=== PATIENT | female | born 1960 | race Caucasian/White ===

== ENCOUNTER 2020-05-17 20:01 | Emergency (ER) | payer BC, SELFPAY ==
[2020-05-17 21:12] VITALS: BP 132/68; PULSE 68; RESP 16; TEMP 36.5; O2SAT 98; BMI 25.2
[2020-05-17 23:24] VITALS: PULSE 80; RESP 18
--- NOTE | 2020-05-17 23:56 | ED.WOUNDLAC ---
HPI - Wound/Laceration General Chief Complaint: Wound/Laceration Stated Complaint: FINGER LACERATION Time Seen by Provider: 05/17/20 23:46 Source: patient Mode of arrival: ambulatory Limitations: no limitations History of Present Illness HPI narrative: patient comes to the emergency room complaining of a laceration to the dorsal aspect of the left index. 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 Patient has a superficial cut to the left index finger, bleeding control. Patient complaining of localized pain, denies being on blood thinners. Onset (ago): hour(s) Location: other ( Left index finger) Related Data Allergies Allergy/AdvReac Type Severity Reaction Status Date / Time No Known Allergies Allergy Verified 05/17/20 23:52 Review of Systems Review of Systems: Constitutional : No Weight loss, No Fever, No Chills, No Night Sweats, No Fatigue, No Malaise ENT/Mouth : No Hearing loss, No Ear Pain, No Nasal Congestion, No Sinus Pain, No Hoarseness, No sore throat, No Rhinorrhea, No Swallowing Difficulty Eyes: No Eye Pain, No Swelling, No Redness, No Foreign Body, No Discharge, No Vision Changes Cardiovascular : No Chest Pain, No SOB, No Dyspnea on Exertion, No Orthopnea, No Edema, No Palpitations Respiratory : No Cough, No Sputum, No Wheezing, No Smoke Exposure, No Dyspnea Gastrointestinal : No Nausea, No Vomiting, No Diarrhea, No Constipation, No abdominal Pain, No Hematochezia, No Melena Genitourinary : no irregular bleeding, No Dysuria, No Urinary Frequency, No Hematuria, No Urinary Incontinence, No Urgency, No Flank Pain, No Urinary Flow Changes, No Hesitancy Musculoskeletal : No joint pain, No Myalgias, No Joint Swelling Skin : laceration to left index finger Neuro : No Weakness, No Numbness, No Paresthesias, No Loss of Consciousness, No Dizziness, No Headache Psych : No Anxiety/Panic, No Depression, No SI/HI/AH/VH, No Social Issues, Heme/Lymph: No Bruising, No Bleeding,No Lymphadenopathy Endocrine : No Polyuria, No Polydipsia, No Temperature Intolerance PMFSH Past Medical History Medical History No known health problems Social History Social History Smoked in Last 30 Days: No Use of substances other than those prescribed or required for medical reasons: No Advance Directives: No Advance Directives Information Provided: No Physical Exam Vital Signs: Vital Signs: Vital Signs Temp Pulse Resp BP Pulse Ox 05/17/20 23:24 80 18 05/17/20 21:12 97.7 F 68 16 132/68 98 Body Mass Index 25.2 Appearance: Alert. Oriented X3. No acute distress. Eyes: Pupils equal, round and reactive to light. ENT: Pharynx normal. Neck: Normal inspection. Neck supple. No lymph nodes noted. No crepitus CVS: Normal heart rate and rhythm. Pulses normal. Normal S1 and S2 Respiratory: No respiratory distress. Breath sounds normal. No Wheezing. No rales Abdomen: Soft and nontender. No rigidity. No distention. good BS x4 Skin: Skin warm and dry. 1 cm superficial laceration to the dorsum of the left index, bleeding controlled, small abrasion to the dorsal aspect of the index finger as well. Extremities: No lower extremity edema. No lower extremity edema. No Lacerations. No Rash Neuro: Oriented X 3. No motor deficit. No sensory deficit. Moving all extermities. No slurred speech. Course Reevaluation(s) Reevaluation #1: Bleeding controlled, wound was thoroughly rinsed, Dermabond applied, Tdap given MDM - Wound/Laceration MDM Narrative Medical decision making narrative: Discharge Plan Discharge Clinical Impression: Laceration Patient Disposition: Home, Self-Care Instructions: Finger Laceration (ED) Additional Instructions: if you see any signs of infection such as redness, pus drainage, fever or any new concerns, please return to the hospital. Please follow-up with your primary care physician in 2-3 days for wound check
== END 2020-05-18 00:20 | disposition home or self-care (01) ==
PROVIDERS: Emergency Provider Emergency Medicine; PCP Internal Medicine
DX: S61.211A Laceration without foreign body of left index finger without damage to nail, initial encounter (principal); S60.411A Abrasion of left index finger, initial encounter; M79.645 Pain in left finger(s); W31.82XA Contact with other commercial machinery, initial encounter; Y93.9 Activity, unspecified; Y92.009 Unspecified place in unspecified non-institutional (private) residence as the place of occurrence of the external cause
CPT/HCPCS: 90471; 90715; 99284

== ENCOUNTER 2020-08-25 12:31 | Outpatient (REF) | payer SELFPAY ==
[2020-08-25 13:19] LABS: Cholesterol 246 mg/dL
== END 2020-08-25 12:32 | disposition home or self-care (01) ==
LOC: HO.LNC 12:31
PROVIDERS: Visit Provider Pathology Anatomic Pathology & Clinical Pathology
DX: Z13.89 Encounter for screening for other disorder (principal)
CPT/HCPCS: 36415; 82465

== ENCOUNTER 2020-10-17 14:22 | Outpatient (REF) | payer BC, SELFPAY | END 2020-10-17 14:23 | disposition home or self-care (01) | LOC: HO.LAB 14:22 | PROVIDERS: Visit Provider Internal Medicine | DX: Z20.822 Contact with and (suspected) exposure to COVID-19 (principal) | CPT/HCPCS: 36415; C9803; U0003; U0005 ==

== ENCOUNTER 2021-08-30 16:57 | Outpatient (REF) | payer BC, SELFPAY ==
[2021-08-30 17:15] LABS: MANUAL DIFF FLAG NO
[2021-08-30 17:20] LABS: Basophils Percent Auto 0.4 % (0-2); Eosinophils Absolute Auto 0.2 X10*3/uL (0.0-0.4); Eosinophils Percent Auto 2.8 % (0-4); Hematocrit 42.1 % (37.0-47.0); Hemoglobin 14.1 g/dl (12.0-16.0); Imm Gran Abs Auto 0.01 X10*3/uL (0.00-0.03); Imm Gran Pct Auto 0.1 % (0.0-0.4); Lymphocytes Absolute Auto 2.8 X10*3/uL (1.2-4.9); Mean Corpuscular HGB Conc 33.5 g/dl (31.0-35.0); Mean Corpuscular Hemoglobin 31.1 pg (27.0-33.0); Mean Corpuscular Volume 92.9 fL (80.0-98.0); Mean Platelet Volume 9.1 fL (9.4-12.3); Monocytes Absolute Auto 0.4 X10*3/uL (0.1-1.2); Monocytes Percent Auto 5.6 % (2-11); Neutrophils Absolute Auto 3.8 x10*3/uL (2.0-8.3); Neutrophils Percent Auto 52.1 % (45-73); Platelet Count 297 X10*3/uL (160-400); Red Blood Count 4.53 X10*6/uL (4.20-5.50); Red Cell Distribution Width 12.7 % (11.0-16.0); White Blood Count 7.3 X10*3/uL (4.8-10.8)
[2021-08-30 17:46] LABS: Alanine Aminotransferase 11 U/L (0-31); Albumin Level 4.2 g/dL (3.5-5.0); Alkaline Phosphatase 63 U/L (39-117); Amylase 128 U/L (28-100); Anion Gap 11 (12-20); Aspartate Amino Transferase 17 U/L (5-31); Bilirubin Direct 0.2 mg/dL (0.0-0.5); Bilirubin Total 0.4 mg/dL (0.0-1.0); Blood Urea Nitrogen 14 mg/dL (9-16); C Reactive Protein 0.25 mg/dL (< or = 0.50); Calcium 9.6 mg/dL (8.4-10.2); Carbon Dioxide 27 mmol/L (22-29); Chloride 104 mmol/L (96-108); Estimated Glomerular Filt Rate > 60; Glucose Random 93 mg/dL (60-115); Lipase 160 U/L (8-78); Potassium 4.2 mmol/L (3.3-5.1); Sodium 138 mmol/L (135-145)
[2021-08-30 18:06] LABS: T4 Thyroxine 7.4 ug/dL (4.5-12.0); Thyroid Stimulating Hormone 1.58 uIU/mL (0.32-4.0)
[2021-08-30 18:13] LABS: Erythrocyte Sedimentation Rate 14 MM/HR (0-20)
[2021-08-31 16:51] LABS: Immunoglobulin A 243 mg/dL (70-320); Immunoglobulin G 1053 mg/dL (600-1540)
[2021-09-01 07:01] LABS: Gliadin Deamidated IgA Ab <1.0 U/mL; Gliadin Deamidated IgG Ab <1.0 U/mL; Transglutaminase Ab IgG <1.0 U/mL
[2021-09-04 22:13] LABS: Endomysial IgA Antibody Negative (Negative)
== END 2021-08-30 16:58 | disposition home or self-care (01) ==
LOC: HO.LAB 16:57
PROVIDERS: PCP Internal Medicine; Visit Provider Internal Medicine
DX: R10.84 Generalized abdominal pain (principal); R19.4 Change in bowel habit; R10.13 Epigastric pain
CPT/HCPCS: 36415; 80053; 82150; 82248; 82784; 83690; 84436; 84443; 85025; 85652; 86140; 86231; 86258; 86364

== ENCOUNTER 2021-08-31 08:52 | Day surgery (SDC) | payer BC, SELFPAY ==
[2021-08-27 13:04] VITALS: BMI 29.2
[2021-08-28 16:53] VITALS: BMI 29.2
[2021-08-31 08:56] VITALS: BP 115/72; PULSE 87; RESP 17; TEMP 36.8; O2SAT 100
[2021-08-31] MEDS: Sodium Phosphate,Mono-Dibasic 133 ML ENEMA PR ×2 (09:24→09:40)
--- NOTE | 2021-08-31 10:15 | P.CONAN_ITS ---
HPI - Anesthesia Eval Consult details Narrative: 61 f for EGD and colonoscopy [facility] Past Medical History Medical History (Updated 08/27/21 @ 13:05 by Kathleen Peters RN) IBS (irritable bowel syndrome) Migraines Family History Family history of problems with anesthesia: No Surgical History Surgical History (Updated 08/27/21 @ 13:02 by Kathleen Peters RN) History of bilateral knee replacement History of toe surgery Hx of colonoscopy Hx of esophagogastroduodenoscopy Hx of repair of left rotator cuff Hx of thumb surgery History of Problems with Anesthesia: No Social History Social History (Updated 08/28/21 @ 16:55 by Kathleen Peters RN) Patient Tobacco Use Status: Never used Tobacco Are you DNR?: No Advance Directives: No Advance Directives Information Provided: Yes Advance Directives on File: No Meds Allergies Allergy/AdvReac Type Severity Reaction Status Date / Time hydromorphone [From AdvReac Nausea and Verified 08/28/21 17:00 Dilaudid] Vomiting Active Medications: Current Medications Sodium Biphosphate/Sodium Phosphate (Sodium Phosphate,[place]-Dibasic 133 Ml Enema) 133 ml [place] ONCE PRN PRN Reason: Poor Colonoscopy Prep Results Last Admin: 08/31/21 09:40 Dose: 133 ml Documented by: Home Medications Medication Instructions Recorded Confirmed Last Taken Type multivitamin 1 tab PO DAILY 08/27/21 08/27/21 Unknown History sumatriptan 5 1 spray 08/27/21 08/28/21 Unknown History mg/actuation INTRANASAL DAILY nasal PRN spray cholecalciferol 25 mcg PO DAILY 08/28/21 08/28/21 Unknown History (vitamin D3) 25 mcg (1,000 unit) capsule (Vitamin D3) magnesium 08/28/21 Unknown History Exam Exam Date and Time: August 31, 2021 1015 Height,Weight and Vital Signs: Height 5 ft 8 in Weight 87.09 kg Last Vital Signs Temp 98.2 F 08/31/21 08:56 Pulse 87 08/31/21 08:56 Resp 17 08/31/21 08:56 BP 115/72 08/31/21 08:56 Pulse Ox 100 08/31/21 08:56 Airway Mallampati Class: I Neck ROM: Full Loose/Missing/Broken Teeth: Yes Heart: rrr Lungs: bl breath sounds Assessment and Plan Assessment Anesthesia Assessment: Anesthesia Plan Discussed Final Anesthetic Review Family History of Problems with Anesthesia: No History of Problems with Anesthesia: No NPO: Yes ASA Class: II Final Preanesthetic Review: [place] Risks/Benef Reviewed Patient Risk: Intermediate Procedure Risk: Intermediate Anesthetic Plan Anesthetic Plan: MAC: Disposition: Standard PACU
[2021-08-31 11:26] VITALS: BP 105/41; PULSE 83; RESP 17; TEMP 36.7; O2SAT 98
--- NOTE | 2021-08-31 11:27 | P.BOP_ITS ---
Brief Operative Note Date of Service: 08/31/21 Pre-op diagnosis: Abdominal pain, Change in Bowel movements Post-op diagnosis: other (Hiatal hernia, Colon polyps) Procedure: EGD with biopsies, Colonoscopy to the cecum with cold snare polypectomy at 30cm, biopsies, and bx/removal of cecal polyp. Surgeon: Amanuel Mendoza Anesthesia: MAC Was an Turbine Room Attendant used for this Procedure?: No Estimated blood loss (mL): 3.0 Pathology: other (A. Descending duodenum B. Gastric antrum C. EG Junction at 35cm D. Cecal polyp E. Ascending colon F. Descending colon G. Polyp at 30cm) Condition: stable Disposition: PACU
[2021-08-31 11:41] VITALS: BP 118/69; PULSE 77; RESP 18; TEMP 36.7; O2SAT 100
--- NOTE | 2021-08-31 15:27 | OP_ITS ---
SURGEON: Amanuel Mendoza MD INDICATIONS: The patient presents for evaluation of abdominal discomfort and irregular bowel movements. Full consent was obtained from her for this, including risks of bleeding and perforation. PREOPERATIVE DIAGNOSIS: POSTOPERATIVE DIAGNOSIS: PROCEDURE PERFORMED: Esophagogastroduodenoscopy with biopsies, and colonoscopy to the cecum with cold snare polypectomy, biopsy removal of polyp, and biopsies. ESTIMATED BLOOD LOSS: COMPLICATIONS: ANESTHESIA: Monitored anesthesia care. ASSISTANTS: SPECIMENS: PREOPERATIVE DIAGNOSES: Abdominal discomfort and change in bowel habits. POSTOPERATIVE DIAGNOSES: Abdominal discomfort and change in bowel habits, hiatal hernia, rule out celiac disease, colon polyps, rule out microscopic colitis, diverticulosis, internal and external hemorrhoids. DESCRIPTION OF PROCEDURE: The patient was placed in the left lateral decubitus position. The Olympus video gastroscope was passed in the posterior oropharynx and upper esophagus under direct vision. The scope was passed slowly into the distal esophagus. The gastroesophageal junction appeared at 35 cm. There was some slight irregularity, but no evidence of any esophagitis nor any definitive evidence of Angel's mucosa. There was a small to moderate-sized hiatal hernia. The hiatal hernia mucosa appeared normal. The scope was advanced to pylorus and duodenum was cannulated in the descending portion. The duodenum including the bulb was carefully inspected and appeared normal without mass or ulceration. Biopsies were obtained from the 2nd and 3rd portions of duodenum. The scope was withdrawn back in the stomach. The gastric antrum and body appeared normal with good peristalsis. The scope was retroflexed visualizing the proximal stomach carefully, which appeared normal, without any sign of mass or ulceration. The scope was straightened. Biopsies were obtained from the gastric antrum. Scope was withdrawn back to the esophagus. Biopsies were obtained at the EG junction at 35 cm. Proximal to this, the esophageal mucosa appeared normal. The scope was withdrawn from the patient. She was turned around for the colonoscopy. The digital rectal exam revealed no abnormalities. The Olympus video pediatric colonoscope was entered into the rectum and advanced easily to the cecum. Once in the cecum, I did identify normal-appearing cecal pouch with appendiceal orifice, other than a 3 mm polyp, which was biopsied and completely removed with cold biopsy forceps. The remainder of the cecum appeared normal. There was transillumination of light deep in the right lower quadrant. The scope was slowly withdrawn assessing all mucosal surfaces carefully. Preparation was excellent. I did not visualize any sign of colitis nor angiodysplasia. Random biopsies were obtained in the ascending and descending colon. There was a mild amount of sigmoid diverticulosis. At 30 cm, was an approximately 6 to 8 mm polyp, which was snared and removed with the cold snare polypectomy. There did not appear to be any residual polyp nor any significant bleeding post polypectomy. I did not visualize any sign of other polyps. In the rectum, scope was retroflexed visualizing internal hemorrhoids, but no other pathology. The rectal mucosa appeared normal. The scope was straightened and withdrawn from the patient. She tolerated the procedure well and was returned to recovery area in stable condition. IMPRESSION: 1. Hiatal hernia. 2. Rule out celiac disease. 3. Colon polyps. 4. Rule out microscopic colitis. 5. Diverticulosis. 6. Internal and external hemorrhoids. PLAN: The results of biopsies will be checked. If the colon polyps are tubular adenoma, I would recommend a followup colonoscopy in 5 years. She was advised not to use any aspirin and NSAIDs for 1 week. She is scheduled for an abdominal ultrasound and was advised to see me again in several months for a followup visit. Recent laboratories were all normal, although she did have a slight elevation of her pancreatic enzymes. Depending upon the results of her ultrasound and her clinical course, she may need further evaluation with a CT scan of the pancreas for further evaluation. MD WILEY Rodas/JULES / [id number]
== END 2021-08-31 12:00 | disposition home or self-care (01) ==
PROVIDERS: PCP Internal Medicine; Visit Provider Internal Medicine
PROC: (CPT 45385; principal; 2021-08-31 09:50)
DX: R19.4 Change in bowel habit (principal); D12.0 Benign neoplasm of cecum; D12.5 Benign neoplasm of sigmoid colon; K57.30 Diverticulosis of large intestine without perforation or abscess without bleeding; K64.8 Other hemorrhoids; K64.4 Residual hemorrhoidal skin tags; K58.9 Irritable bowel syndrome, unspecified; R10.13 Epigastric pain; R10.84 Generalized abdominal pain; K44.9 Diaphragmatic hernia without obstruction or gangrene; G43.909 Migraine, unspecified, not intractable, without status migrainosus; Z79.899 Other long term (current) drug therapy; Z88.8 Allergy status to other drugs, medicaments and biological substances; Z96.653 Presence of artificial knee joint, bilateral
CPT/HCPCS: 45385; 45380; 43239; 88305; 88342

== ENCOUNTER 2021-10-11 08:54 | Outpatient (REF) | payer BC, SELFPAY ==
--- NOTE | ~2021-10-11 | US_ITS ---
EXAMINATION: US ABDOMEN COMPLETE CLINICAL INFORMATION: Abdominal pain. COMPARISON: None TECHNIQUE: Real-time imaging of the abdominal viscera. FINDINGS: PANCREAS: Normal. ABDOMINAL AORTA: The proximal, mid, and distal segments are normal in caliber. INFERIOR VENA CAVA: Visualized portions are normal. LIVER: Normal. The liver is normal in size. The liver contour is normal. Parenchymal echogenicity is normal. No focal hepatic lesion. There is no intrahepatic biliary duct dilatation seen. GALLBLADDER: Normal. The gallbladder is physiologically distended without evidence of stones, sludge, polyps, wall thickening or pericholecystic fluid. COMMON BILE DUCT: Normal in caliber measuring 0.5 cm in diameter. RIGHT KIDNEY: Normal. No hydronephrosis. No renal calculi or focal parenchymal lesions. The kidney measures 10.8 cm in maximum dimension. LEFT KIDNEY: Normal. No hydronephrosis. No renal calculi or focal parenchymal lesions. The kidney measures 10.2 cm in maximum dimension. SPLEEN: Normal. The spleen measures 10.2 cm in maximum dimension. FREE FLUID: None. US/US abdomen complete IMPRESSION: Essentially unremarkable appearance of the abdominal structures.
== END 2021-10-11 08:55 | disposition home or self-care (01) ==
LOC: HO.US 08:54
PROVIDERS: PCP Internal Medicine; Visit Provider Internal Medicine
DX: R10.84 Generalized abdominal pain (principal); R10.13 Epigastric pain
CPT/HCPCS: 76700

== ENCOUNTER 2021-11-28 17:16 | Outpatient (REF) | payer BC, SELFPAY ==
[2021-11-28 18:11] LABS: Amylase 69 U/L (28-100); Lipase 14 U/L (8-78)
== END 2021-11-28 17:17 | disposition home or self-care (01) ==
LOC: HO.LAB 17:16
PROVIDERS: PCP Internal Medicine; Visit Provider Internal Medicine
DX: R10.84 Generalized abdominal pain (principal)
CPT/HCPCS: 36415; 82150; 83690

== ENCOUNTER 2022-02-12 16:41 | Emergency (ER) | payer BC, SELFPAY | END 2022-02-12 18:05 | disposition left against medical advice (07) | PROVIDERS: Emergency Provider Emergency Medicine; PCP Internal Medicine | DX: R51.9 Headache, unspecified (principal) ==

== ENCOUNTER → 2025-02-06 03:37 | Outpatient (BNV) | payer BC, SELFPAY | PROVIDERS: PCP Internal Medicine; Visit Provider Specialist | DX: K59.00 Constipation, unspecified (principal) | CPT/HCPCS: 74018 ==

== ENCOUNTER 2025-02-06 04:16 | Emergency (ER) | payer BC, SELFPAY ==
--- NOTE | ~2025-02-06 | XR_ITS ---
CLINICAL HISTORY: constipation 1 view abdomen Comparison: None provided Findings: No pneumoperitoneum or pneumatosis. No abnormal calcifications. No acute fractures. There is an IUD in the mid pelvis. IMPRESSION: Normal bowel gas pattern This document has been electronically signed by: Pawel Parish MD on 02/06/2025 04:57:02
[2025-02-06 04:18] VITALS: BP 125/77; PULSE 75; RESP 14; TEMP 36.8; O2SAT 100; BMI 25.8
[2025-02-06 04:47] LABS: MANUAL DIFF FLAG NO
[2025-02-06 04:50] LABS: Hematocrit 31.7 % (37.0-47.0); Hemoglobin 10.9 g/dl (12.0-16.0); Imm Gran Abs Auto 0.07 X10*3/uL (0.00-0.03); Imm Gran Pct Auto 0.9 % (0.0-0.4); Lymphocytes Absolute Auto 1.5 X10*3/uL (1.2-4.9); Mean Corpuscular HGB Conc 34.4 g/dl (31.0-35.0); Mean Corpuscular Hemoglobin 31.6 pg (27.0-33.0); Mean Corpuscular Volume 91.9 fL (80.0-98.0); NRBC Abs Auto 0.000 X10*3/uL (0.0-0.012); NRBC Pct Auto 0.0 /100WBC (0.0-0.2); Platelet Count 369 X10*3/uL (160-400); Red Blood Count 3.45 X10*6/uL (4.20-5.50); White Blood Count 7.4 X10*3/uL (4.8-10.8)
[2025-02-06 05:07] LABS: Alanine Aminotransferase 23 U/L (0-31); Albumin Level 3.8 g/dL (3.5-5.0); Alkaline Phosphatase 56 U/L (39-117); Anion Gap 13 (12-20); Aspartate Amino Transferase 30 U/L (5-31); Blood Urea Nitrogen 11 mg/dL (9-16); Calcium 8.6 mg/dL (8.4-10.2); Carbon Dioxide 23 mmol/L (22-29); Chloride 104 mmol/L (96-108); Creatinine Clr Calc Pharmacy 88.9; Estimated Glomerular Filt Rate > 60; Lipase 33 U/L (8-78); Potassium 4.3 mmol/L (3.3-5.1); Sodium 136 mmol/L (135-145); Total Protein 6.1 g/dL (6.5-8.0)
--- NOTE | 2025-02-06 05:37 | ED_ITS ---
HPI - General Adult General Chief complaint: General Medical Stated complaint: constipated Time Seen by Provider: 02/06/25 05:37 History of Present Illness ED Provider: Yves TOTH narrative: The patient is a 64-year-old woman who recently had scheduled right hip replacement surgery. SHe had surgery at [facility] on January 26. She was discharged on oxycodone and trazodone. She says that after the surgery she had bowel movements for a couple of days but at this point she has not had a bowel movement for about a week. She says that she has had some occasional episodes of vomiting in the last few days. She ate a normal dinner yesterday evening. She ate chili. However this morning she had an episode of vomiting. It was after the episode of vomiting that she came to the emergency department. No fever, sweats, chills. Currently she has no abdominal pain and she has no nausea. Related Data Home Medications ?Medication ?Instructions ?Recorded ?Confirmed multivitamin 1 tab PO DAILY 08/27/2108/05 sumatriptan 5 mg/actuation nasal 1 spray intranasal DA NARGIS PRN 08/27/21 08/28/21 spray Headache cholecalciferol (vitamin D3) 25 25 mcg PO DAILY 08/28/21 mcg (1,000 unit) capsule (Vitamin D3) magnesium 08/28/21 Allergies Allergy/AdvReac Type Severity Reaction Status Date / Time hydromorphone (From Dilaudid) AdvReac Nausea and Verified 02/06/25 04:22 Vomiting Review of Systems 2 Review of Systems: Yes all other systems are reviewed and are negative [facility] Past Medical History Medical History (Updated 02/06/25 @ 08:28 by Miller Marinelli MD) Migraines IBS (irritable bowel syndrome) Surgical History (Updated 08/27/21 @ 13:02 by Kathleen Peters RN) History of toe surgery Hx of thumb surgery Hx of repair of left rotator cuff Hx of esophagogastroduodenoscopy Hx of colonoscopy History of bilateral knee replacement Social History Social History (Updated 08/28/21 @ 16:55 by Kathleen Peters RN) Patient Tobacco Use Status: Never used Tobacco Advance Directives: Yes Advance Directives Information Provided: Yes Advance Directives on File: No Do you have a plan to hurt others: No Plan Physical Exam ED Vital Signs: Vital Signs - 24 hr 02/06/25 04:18 02/06/25 05:55 02/06/25 08:41 Temperature 98.3 F 97.8 F 97.8 F Pulse Rate 75 70 78 Respiratory Rate 14 18 18 Blood Pressure 125/77 93/52 L 113/58 L Pulse Oximetry 100 100 100 Oxygen Delivery Method Room Air Room Air Room Air BMI result Body Mass Index 25.8 Const Other: The patient is awake, alert, pleasant, cooperative. She is well-groomed. She does not seem in distress. HENMT Other: Face is symmetrical, mucous membranes moist. Eyes Other: Pupils are round equal, conjunctivae are clear, extraocular movements intact Neck Neck: Yes normal visual inspection, Yes full ROM and Yes no JVD Resp Effort & Inspection: normal respiratory effort Auscultation: clear to auscultation bilaterally Cardio Rate: regular rate Rhythm: regular rhythm and abnormal rhythm GI Other: The abdomen is soft and nontender. Rectal exam revealed normal rectal tone. There was no stool in the rectal vault. No impaction Skin Other: Skin is dry and unremarkable Neuro Other: The patient is awake and alert with a normal mental status. Cranial nerves 2-12 are intact. She moves her extremities normally and appropriately. She has a stiff gait consistent with a recent hip replacement surgery. Extrem Other: The patient has a lot of bruising in the region of the right lateral proximal thigh where she has a surgical scar. Medications Administered Discontinued Medications Generic Name Dose Route Start Last Admin Trade Name Freq PRN Reason Stop Dose Admin Lactulose 200 gm 02/06/25 06:34 02/06/25 07:42 Lactulose 320 Gm/480 Ml Solution NV 02/06/25 06:35 200 gm ONCE ONE Administration Magnesium Citrate 300 ml 02/06/25 08:25 02/06/25 08:35 Magnesium Citrate 300 Ml Solution PO 02/06/25 08:26 300 ml ONCE ONE Administration Sodium Biphosphate/Sodium Phosphate 133 ml 02/06/25 05:47 02/06/25 05:54 Sodium Phosphate,[place]-Dibasic 133 Ml Enema NV 02/06/25 05:48 133 ml ONCE ONE Administration Medical Decision Making Medical Decision Making MDM Narrative: The patient is a 64-year-old female who is approximately 10 days status post total right hip replacement surgery. She has not had a bowel movement for the last 7-8 days. She used oxycodone only for 3 days after the surgery. She says that she has given herself an enema at home and she has taken a dose of lactulose. This morning she had an episode of vomiting after eating dinner yesterday evening. She is not currently nauseated or in pain. Her abdomen is benign. There was no fecal impaction. The patient's clinical appearance is benign. She does not appear septic or toxic in any way. She was given a Fleet enema which had no results. She was also given a lactulose enema which has no results. Her KUB does not show a remarkably large amount of stool. She was offered the option of a CT scan with oral contrast to be both possibly diagnostic and therapeutic. Alternatively she was given the option of trying a bottle of magnesium citrate in drinking it at home and seeing how she does. She has a CBC that shows a normal white count and differential. Her chemistries are all normal. Her vital signs are normal. She is not febrile. She has a completely benign abdomen to palpation. She would prefer to go home and see of magnesium citrate helps. She should return if worse. Lab Data 02/06/25 04:44 02/06/25 04:44 Labs: Lab Results 02/06/25 Range/Units 04:44 WBC 7.4 (4.8-10.8) X10*3/uL RBC 3.45 L D (4.20-5.50) X10*6/uL Hgb 10.9 L D (12.0-16.0) g/dl Hct 31.7 L D (37.0-47.0) % MCV 91.9 (80.0-98.0) fL MCH 31.6 (27.0-33.0) pg MCHC 34.4 (31.0-35.0) g/dl RDW 14.4 (11.0-16.0) % Plt Count 369 (160-400) X10*3/uL MPV 8.6 L (9.4-12.3) fL Immature Gran % (Auto) 0.9 H (0.0-0.4) % Neut % (Auto) 69.5 (45-73) % Lymph % (Auto) 20.8 (20-40) % [place] % (Auto) 5.7 (2-11) % Eos % (Auto) 2.7 (0-4) % Baso % (Auto) 0.4 (0-2) % Lymph # (Auto) 1.5 (1.2-4.9) X10*3/uL [place] # (Auto) 0.4 (0.1-1.2) X10*3/uL Eos # (Auto) 0.2 (0.0-0.4) X10*3/uL Baso # (Auto) 0.0 (0.0-0.2) X10*3/uL Abs Immat Gran (auto) 0.07 H (0.00-0.03) X10*3/uL Absolute Neuts (auto) 5.1 (2.0-8.3) x10*3/uL Absolute Nucleated RBC 0.000 (0.0-0.012) X10*3/uL Nucleated RBC % (auto) 0.0 (0.0-0.2) /100WBC Sodium 136 (135-145) mmol/L Potassium 4.3 (3.3-5.1) mmol/L Chloride 104 (96-108) mmol/L Carbon Dioxide 23 (22-29) mmol/L Anion Gap 13 (12-20) BUN 11 (9-16) mg/dL Creatinine 0.65 (0.5-1.4) mg/dL Estim Creat Clear Calc 88.9 Estimated GFR > 60 Random Glucose 103 (60-115) mg/dL Calcium 8.6 D (8.4-10.2) mg/dL Total Bilirubin 0.5 (0.0-1.0) mg/dL AST 30 (5-31) U/L ALT 23 (0-31) U/L Alkaline Phosphatase 56 (39-117) U/L Total Protein 6.1 L (6.5-8.0) g/dL Albumin 3.8 (3.5-5.0) g/dL Lipase 33 (8-78) U/L Discharge Plan Discharge Clinical Impression: Constipation Patient Disposition: Home, Self-Care Instructions: Constipation (ED) Additional Instructions: Your blood test results are quite reassuring. I still think there is a reasonably good likelihood you have some degree of constipation. However since the enemas have not helped I think it would be reasonable for you to take a bottle of magnesium citrate by mouth to see if this is more effective than the enemas. Therefore please drink the provided bottle of magnesium citrate over the next couple of hours at home today. My hope is that this will have a significant purgative effect. Please stay in touch with your regular doctor's office for additional advice as needed. If you feel significantly worse please return to the emergency room. Prescriptions: No Action multivitamin Tablet 1 tab PO DAILY sumatriptan 5 mg/actuation spray,non-aerosol 1 spray intranasal DAILY PRN (Reason: Headache) cholecalciferol (vitamin D3) [Vitamin D3] 25 mcg (1,000 unit) Capsule 25 mcg PO DAILY magnesium Referrals: Germán Posey MD [Primary Care Provider, Internal Medicine] Interventions: ED Discharge Assessment Last Done: 02/06/25 08:41 Discharge Date/Time: 02/06/25 08:45 Print Language: Greek
[2025-02-06 05:55] VITALS: BP 93/52; PULSE 70; RESP 18; TEMP 36.6; O2SAT 100
--- NOTE | 2025-02-06 06:25 | PC.NURSE ---
pt reporting she was able to hold the enema for about 5 minutes, then had to use the bathroom, only water came out, no stool at this time. MD michael
--- NOTE | 2025-02-06 06:44 | PC.NURSE ---
awaiting lactulose from pharmacy.
[2025-02-06] MEDS: Lactulose 320 GM/480 ML SOLUTION 200 GM PR (07:42)
--- NOTE | 2025-02-06 08:18 | PC.NURSE ---
Pt reports that she was up to BR x 2 after lactulose enema w/o any BM. Just clear liquid. MD aware. Pt had tolerated instilling of aprox 700ml very well during administration.
[2025-02-06 08:41] VITALS: BP 113/58; PULSE 78; RESP 18; TEMP 36.6; O2SAT 100
== END 2025-02-06 08:45 | disposition home or self-care (01) ==
PROVIDERS: Emergency Provider Emergency Medicine; PCP Internal Medicine
DX: K59.00 Constipation, unspecified (principal); R11.10 Vomiting, unspecified; Z79.899 Other long term (current) drug therapy
CPT/HCPCS: 36415; 74018; 80053; 83690; 85025; 99283; 99284

== ENCOUNTER 2025-02-07 05:28 | Emergency (ER) | payer BC, SELFPAY ==
--- NOTE | ~2025-02-07 | CT_ITS ---
EXAMINATION: CT ABDOMEN AND PELVIS WITH CONTRAST CLINICAL INFORMATION: Nausea and vomiting. COMPARISON: None available. TECHNIQUE: Multidetector volumetric images were obtained from the superior aspect of the liver through the pubic symphysis following administration 85 mL of Omnipaque 350 intravenous contrast. Sagittal and coronal reformatted images were obtained on the technologist's workstation. Oral contrast: Yes This CT examination was performed using dose optimization techniques as appropriate, variously including the following: *Automated exposure control *Adjustment of mA and/or kV according to patient size (this includes techniques or standardized protocols for targeted exams where dose is matched to indication/reason for exam; i.e. extremities or head) *Use of iterative reconstruction technique FINDINGS: LUNG BASES: The visualized lung bases are unremarkable. LIVER, GALLBLADDER, AND BILIARY TREE: The liver is normal in size, shape, and attenuation. No focal hepatic lesion or biliary ductal dilatation is present. The gallbladder is unremarkable with no evidence of radiopaque gallstones, gallbladder wall thickening, or obvious pericholecystic inflammatory changes. PANCREAS: Unremarkable. SPLEEN: Unremarkable. ADRENAL GLANDS: Unremarkable. KIDNEYS AND URETERS: The kidneys are normal in size, shape, and attenuation. No hydronephrosis, hydroureter, or calculi seen. No perinephric stranding. BLADDER: Partially obscured by streak artifact from right hip prosthesis. Otherwise normal. GASTROINTESTINAL TRACT: Normal appendix visualized. Minimal thickening of the terminal ileum, equivocal for a mild enteritis. The small bowel is otherwise normal in caliber and course. The colon is normal in caliber and course. There is mild to moderate diverticulosis of the sigmoid. No wall thickening or inflammation identified. The rectum is normal. PERITONEUM: There is trace ascites in the pelvic recesses. There is no free air. ABDOMINAL WALL: No significant hernia is appreciated. LYMPH NODES: Normal. VASCULAR: Mild atheromatous calcification of the aorta and iliac arteries. There is no aortic aneurysm. PELVIC VISCERA: An IUD device lies within the central uterus. There are no adnexal masses. OSSEOUS STRUCTURES: No suspicious lytic or blastic bone lesions. Hemangiomas are present in T12, L2 and L4. There is a mild levoconvex lumbar scoliosis with moderate degenerative spondylosis. Total right hip arthroplasty in place with associated streak artifact. Moderate arthritis in the left hip joint with chondrocalcinosis present. Vague calcifications overlying the greater trochanters bilaterally, in keeping with calcific tendinopathy of the gluteus medius tendons. Similar calcifications noted in the hamstrings attachments. No suspicious lytic or blastic bone lesion. CT/CT abdomen pelvis w IV con IMPRESSION: 1. Minimal thickening of the terminal ileum, raising the possibility of a mild enteritis. There is no bowel obstruction. 2. There is mild wall thickening of the left hemicolon, in keeping with mild segmental infectious or inflammatory colitis in the appropriate clinical setting. Correlate for signs and symptoms of colitis. 3. No additional acute findings in the abdomen or pelvis. 4. There are numerous ancillary findings as discussed in the body of the report. Electronically signed by: Mitch Laboy MD 02/07/2025 12:21 PM EDT
[2025-02-07 05:35] VITALS: BP 115/64; PULSE 73; RESP 16; TEMP 36.3; O2SAT 97; BMI 25.8
--- NOTE | 2025-02-07 07:49 | PC.NURSE ---
Report taken from previous rn, pt is resting comfortably sitting at edge of bed. pt was also witnessed ambulating with brisk steady gait in room. call love is within reach pt does not appear to be a fall risk.
--- NOTE | 2025-02-07 07:58 | ED_ITS ---
HPI - Abdominal Pain General Chief Complaint: Abdominal Pain Stated Complaint: severe constipation after hip surgery Time Seen by Provider: 02/07/25 07:57 Source: patient and RN notes reviewed Mode of arrival: ambulatory Limitations: no limitations History of Present Illness ED Provider: Jacey Herrera PA-C HPI narrative: This is a 64-year-old female, with a recent total hip replacement performed at [facility] on January 26, 2025, and IBS, here with concerns of nausea, vomiting, and constipation. Patient presented to the emergency room yesterday for similar symptoms. Patient reports that she had a bowel movement on January 25, the day before her surgery, states that several days after her surgery she had very hard stool. She states that she only was on oxycodone for 2-3 doses, which he has since discontinued. She has been taking docusate, MiraLax, enemas, lactulose, Mag citrate, however continues to have only water stool. She does report that she has had decreased flatulence, unsure she has passed gas over the last 24 hours. She denies any fevers. She does endorse headache, and nausea. No abdominal pain fevers, chills, chest pain, shortness for breath, or urinary symptoms. No other complaints or concerns at this time. Pertinent past history: constipation Onset (ago): day(s) Location: none Radiation: none Exacerbating factors: nothing Relieving factors: nothing Associated symptoms: nausea and constipation Related Data Home Medications ?Medication ?Instructions ?Recorded ?Confirmed multivitamin 1 tab PO DAILY 08/27/2108/05 sumatriptan 5 mg/actuation nasal 1 spray intranasal DA NARGIS PRN 08/27/21 08/28/21 spray Headache cholecalciferol (vitamin D3) 25 25 mcg PO DAILY 08/28/21 mcg (1,000 unit) capsule (Vitamin D3) magnesium 08/28/21 Allergies Allergy/AdvReac Type Severity Reaction Status Date / Time hydromorphone (From Dilaudid) AdvReac Nausea and Verified 02/07/25 05:38 Vomiting Review of Systems Review of Systems Yes all other systems are reviewed and are negative Constitutional: Reports as per HPI [facility] Past Medical History Attestation statement: The following information was validated with the patient. Medical History Migraines IBS (irritable bowel syndrome) Surgical History History of toe surgery Hx of thumb surgery Hx of repair of left rotator cuff Hx of esophagogastroduodenoscopy Hx of colonoscopy History of bilateral knee replacement Social History Social History Patient Tobacco Use Status: Never used Tobacco Smoked in Last 30 Days: No Use of substances other than those prescribed or required for medical reasons: No Advance Directives: No Advance Directives Information Provided: No Physical Exam ED Vital Signs: Vital Signs - 24 hr 02/07/25 05:35 Temperature 97.4 F Pulse Rate 73 Respiratory Rate 16 Blood Pressure 115/64 Pulse Oximetry 97 Oxygen Delivery Method Room Air BMI result Body Mass Index 25.8 Const General: cooperative, comfortable and no acute distress Orientation/consciousness: patient oriented x3 Limitations: no limitations HENMT Head: Yes normal to inspection, Yes normocephalic and Yes atraumatic Ears: hearing grossly normal bilaterally General nose exam: Normal external nose present Face and sinus: Yes normal facial exam Mouth: Normal oral and palatal mucosa present, oropharynx normal and moist mucous membranes Throat: Yes posterior oropharynx normal Eyes General: appearance normal, both eyes and all related structures Eyelids: Yes eyelids normal Conjunctivae: conjunctivae normal Sclerae: sclerae normal Pupils: Equal, round and reactive pupils present EOM: EOMs intact bilaterally Neck Neck: Yes normal visual inspection, Yes full ROM and Yes no lymphadenopathy Lymphatic: no lymphadenopathy noted Chest Chest palpation & inspection: normal inspection of the chest Resp Effort & Inspection: normal respiratory effort and able to speak in complete sentences Auscultation: clear to auscultation bilaterally, no crackles, no rales, no rhonchi and no wheezes Cardio Rate: regular rate Rhythm: regular rhythm Heart sounds: S1 normal heart sound present and S2 normal heart sound present GI Other: Abdomen is soft, nontender, nondistended, hyperactive bowel sounds present in all 4 quadrants. Inspection: Yes normal to inspection Skin General skin exam: no rashes or lesions noted Trauma: no lacerations or abrasions Wounds: no wounds Neuro General: patient oriented x3 and moves all extremities Cranial nerves: Yes Equal, round and reactive pupils present Extrem General: Yes normal to inspection Right upper extremity: normal to inspection Left upper extremity: normal to inspection Right lower extremity: normal to inspection Left lower extremity: normal to inspection Medical Decision Making Medical Decision Making [facility] Narrative: This is a 64-year-old female, with a history of IBS, and recent hip replacement, who presents emergency department with concerns of constipation. Has not moved her bowels fully since before the surgery which was performed on January 26. She has no abdominal pain, reporting decreased flatulence. No fevers or chills. Will obtain labs, and CT abdomen and pelvis with IV contrast and oral contrast. Differential diagnoses include constipation, SBO, gastritis, diverticulitis. Vital signs on arrival within normal limits, she is afebrile, nontoxic- appearing, not tachycardic. We will continue to monitor pending overall workup. Course: Labs returned, no leukocytosis, H&H revealing a normocytic anemia with 11.9/36.1, chemistry revealing no significant electrolyte derangement, urine with trace blood, otherwise unremarkable. 1424 - Your CT scan reveals minimal thickening of the terminal ileum, raising possibility mild enteritis, as well as mild wall thickening of the left hemicolon in keeping with mild segmental infectious or inflammatory colitis. I discussed this with GI specialist, Dr. Mendoza. Dr. Mendoza states that she must think she is constipated, and watery stools are likely from all of the bowel meds that she is currently on. CT scan is not consistent with constipation. Recommending checking for C diff, GI panel, as well as fecal calprotectin level. Recommending holding off on any antibiotic or steroid treatment, until lay off all of the bowel medications and start using to Metamucil fiber pills once or twice a day with a lot of water and eat normally. Patient was given strict return precautions, she understands and agrees with plan. Patient stable for discharge. Differential Diagnosis Differential Diagnoses: The differential diagnosis associated with the presentation includes See above Admission/Observation Consideration of admission/observation: Escalation of care including admission/observation considered Lab Data [facility] Lab Attestation statement: I reviewed the patient's lab results. See MDM and course 02/07/25 08:30 02/07/25 08:29 Labs: Lab Results 02/07/25 02/07/25 Range/Units 08:29 08:30 WBC 8.2 (4.8-10.8) X10*3/uL RBC 3.84 L (4.20-5.50) X10*6/uL Hgb 11.9 L (12.0-16.0) g/dl Hct 36.1 L (37.0-47.0) % MCV 94.0 (80.0-98.0) fL MCH 31.0 (27.0-33.0) pg MCHC 33.0 (31.0-35.0) g/dl RDW 14.9 (11.0-16.0) % Plt Count 442 H (160-400) X10*3/uL MPV 8.5 L (9.4-12.3) fL Immature Gran % (Auto) 0.7 H (0.0-0.4) % Neut % (Auto) 58.4 (45-73) % Lymph % (Auto) 30.5 (20-40) % Perkins % (Auto) 6.6 (2-11) % Eos % (Auto) 3.3 (0-4) % Baso % (Auto) 0.5 (0-2) % Lymph # (Auto) 2.5 (1.2-4.9) X10*3/uL Perkins # (Auto) 0.5 (0.1-1.2) X10*3/uL Eos # (Auto) 0.3 (0.0-0.4) X10*3/uL Baso # (Auto) 0.0 (0.0-0.2) X10*3/uL Abs Immat Gran (auto) 0.06 H (0.00-0.03) X10*3/uL Absolute Neuts (auto) 4.8 (2.0-8.3) x10*3/uL Absolute Nucleated RBC 0.000 (0.0-0.012) X10*3/uL Nucleated RBC % (auto) 0.0 (0.0-0.2) /100WBC Sodium 137 (135-145) mmol/L Potassium 4.5 (3.3-5.1) mmol/L Chloride 107 (96-108) mmol/L Carbon Dioxide 25 (22-29) mmol/L Anion Gap 10 L (12-20) BUN 9 (9-16) mg/dL Creatinine 0.60 (0.5-1.4) mg/dL Estim Creat Clear Calc 96.3 Estimated GFR > 60 Random Glucose 85 (60-115) mg/dL Calcium 8.7 (8.4-10.2) mg/dL Magnesium 2.6 (1.6-2.6) mg/dL Total Bilirubin 0.7 (0.0-1.0) mg/dL Direct Bilirubin 0.2 (0.0-0.5) mg/dL AST 30 (5-31) U/L ALT 24 (0-31) U/L Alkaline Phosphatase 55 (39-117) U/L Total Protein 6.6 (6.5-8.0) g/dL Albumin 4.0 (3.5-5.0) g/dL Lipase 21 (8-78) U/L Urine Color Yellow Urine Appearance Clear Urine pH 7.0 (5.0-9.0) Ur Specific [place] <= 1.005 (1.005-1.025) Urine Protein Negative (Neg-Trace) mg/dL Urine Glucose (UA) Negative (Negative) mg/dL Urine Ketones Negative (Negative) mg/dL Urine Blood Trace H (Negative) Urine Nitrite Negative (Negative) Ur Leukocyte Esterase Negative (Negative) Urine RBC 0-2 (0-2) /HPF Urine WBC 0-5 (0-5) /HPF Ur Squamous Epith Cells 0-2 (0-2) /HPF Urine Bacteria None Seen (None Seen) Hyaline Casts 0-2 (0-2) /LPF Radiology Impression Discussion of test interpretation with radiology: I have reviewed the radiologist's reading. Radiologist Impression: FINDINGS: LUNG BASES: The visualized lung bases are unremarkable. LIVER, GALLBLADDER, AND BILIARY TREE: The liver is normal in size, shape, and attenuation. No focal hepatic lesion or biliary ductal dilatation is present. The gallbladder is unremarkable with no evidence of radiopaque gallstones, gallbladder wall thickening, or obvious pericholecystic inflammatory changes. PANCREAS: Unremarkable. SPLEEN: Unremarkable. ADRENAL GLANDS: Unremarkable. KIDNEYS AND URETERS: The kidneys are normal in size, shape, and attenuation. No hydronephrosis, hydroureter, or calculi seen. No perinephric stranding. BLADDER: Partially obscured by streak artifact from right hip prosthesis. Otherwise normal. GASTROINTESTINAL TRACT: Normal appendix visualized. Minimal thickening of the terminal ileum, equivocal for a mild enteritis. The small bowel is otherwise normal in caliber and course. The colon is normal in caliber and course. There is mild to moderate diverticulosis of the sigmoid. No wall thickening or inflammation identified. The rectum is normal. PERITONEUM: There is trace ascites in the pelvic recesses. There is no free air. ABDOMINAL WALL: No significant hernia is appreciated. LYMPH NODES: Normal. VASCULAR: Mild atheromatous calcification of the aorta and iliac arteries. There is no aortic aneurysm. PELVIC VISCERA: An IUD device lies within the central uterus. There are no adnexal masses. OSSEOUS STRUCTURES: No suspicious lytic or blastic bone lesions. Hemangiomas are present in T12, L2 and L4. There is a mild levoconvex lumbar scoliosis with moderate degenerative spondylosis. Total right hip arthroplasty in place with associated streak artifact. Moderate arthritis in the left hip joint with chondrocalcinosis present. Vague calcifications overlying the greater trochanters bilaterally, in keeping with calcific tendinopathy of the gluteus medius tendons. Similar calcifications noted in the hamstrings attachments. No suspicious lytic or blastic bone lesion. CT/CT abdomen pelvis w IV con IMPRESSION: 1. Minimal thickening of the terminal ileum, raising the possibility of a mild enteritis. There is no bowel obstruction. 2. There is mild wall thickening of the left hemicolon, in keeping with mild segmental infectious or inflammatory colitis in the appropriate clinical setting. Correlate for signs and symptoms of colitis. 3. No additional acute findings in the abdomen or pelvis. 4. There are numerous ancillary findings as discussed in the body of the report. Electronically signed by: Mitch Laboy MD 02/07/2025 12:21 PM EDT Dictated By: Mitch Laboy MD Medications Administered Discontinued Medications Generic Name Dose Route Start Last Admin Trade Name Freq PRN Reason Stop Dose Admin Diatrizoate Meglum/Diatrizoate Sod 30 ml 02/07/25 10:41 02/07/25 10:42 Diatrizoate Meglumine, Sodium 30 Ml Solution PO 02/07/25 10:42 30 ml ONCE ONE Administration Sodium Chloride 1,000 mls @ 999 mls/hr 02/07/25 08:11 02/07/25 11:00 Ns IV 02/07/25 09:11 Infused .Q1H1M ONE Infusion Iohexol 100 ml 02/07/25 10:41 02/07/25 10:41 Iohexol 350 Mg/Ml 100 Ml Infus..Btl IV 02/07/25 10:42 85 ml ONCE ONE Administration Discharge Plan Discharge Clinical Impression: Colitis Patient Disposition: Home, Self-Care Instructions: Acute Diarrhea (ED) Additional Instructions: You were seen in the emergency department due to concerns for constipation. You are not constipated. Your CT scan and shows possible mild enteritis or colitis. Stop using the bowel regimen medications that you are currently on. Your workup today was discussed with your GI specialist, Dr. Mendoza. He is recommending to start taking 2 Metamucil fiber pills once or twice per day with a lot of water, and please eat normally. We are sending your stool out for further testing, we will call you if any of these are positive. I am recommending you follow-up with your GI specialist, call today to make an appointment. If any new or worsening symptoms occur including but not limited to fevers, chills, severe chest pain, shortness of breath, abdominal pain, bloody or black stool, please seek emergent care. Prescriptions: No Action multivitamin Tablet 1 tab PO DAILY sumatriptan 5 mg/actuation spray,non-aerosol 1 spray intranasal DAILY PRN (Reason: Headache) cholecalciferol (vitamin D3) [Vitamin D3] 25 mcg (1,000 unit) Capsule 25 mcg PO DAILY magnesium Referrals: Amanuel Mendoza MD [Physician, Gastroenterology] Print Language: Hungarian
[2025-02-07 08:34] LABS: MANUAL DIFF FLAG NO
[2025-02-07 08:36] LABS: Hematocrit 36.1 % (37.0-47.0); Hemoglobin 11.9 g/dl (12.0-16.0); Imm Gran Abs Auto 0.06 X10*3/uL (0.00-0.03); Imm Gran Pct Auto 0.7 % (0.0-0.4); Lymphocytes Absolute Auto 2.5 X10*3/uL (1.2-4.9); Mean Corpuscular HGB Conc 33.0 g/dl (31.0-35.0); Mean Corpuscular Hemoglobin 31.0 pg (27.0-33.0); Mean Corpuscular Volume 94.0 fL (80.0-98.0); NRBC Abs Auto 0.000 X10*3/uL (0.0-0.012); NRBC Pct Auto 0.0 /100WBC (0.0-0.2); Platelet Count 442 X10*3/uL (160-400); Red Blood Count 3.84 X10*6/uL (4.20-5.50); White Blood Count 8.2 X10*3/uL (4.8-10.8)
[2025-02-07 08:38] LABS: Appearance Urine Clear; Glucose Urine UA Negative (Negative); PH 7.0 (5.0-9.0); Specific Gravity - Urine <= 1.005 (1.005-1.025); UMIC TRIGGER UACC YES
[2025-02-07 09:01] LABS: Alanine Aminotransferase 24 U/L (0-31); Albumin Level 4.0 g/dL (3.5-5.0); Alkaline Phosphatase 55 U/L (39-117); Anion Gap 10 (12-20); Aspartate Amino Transferase 30 U/L (5-31); Blood Urea Nitrogen 9 mg/dL (9-16); Calcium 8.7 mg/dL (8.4-10.2); Carbon Dioxide 25 mmol/L (22-29); Chloride 107 mmol/L (96-108); Creatinine Clr Calc Pharmacy 96.3; Estimated Glomerular Filt Rate > 60; Lipase 21 U/L (8-78); Magnesium 2.6 mg/dL (1.6-2.6); Potassium 4.5 mmol/L (3.3-5.1); Sodium 137 mmol/L (135-145); Total Protein 6.6 g/dL (6.5-8.0)
[2025-02-07] MEDS: iohexoL 350 MG/ML 100 ML INFUS..BTL IV (10:41)
[2025-02-07 14:39] VITALS: BP 115/64; PULSE 73; RESP 16; TEMP 36.3; O2SAT 97
[2025-02-08 07:26] LABS: E. coli EAEC Not Detected (Not Detect.); E. coli EPEC Not Detected (Not Detect.); E. coli ETEC Not Detected (Not Detect.); E. coli STEC Not Detected (Not Detect.); Shigella sp./EIEC Not Detected (Not Detect.)
[2025-02-12 20:09] LABS: Calprotectin, Fecal 27 mcg/g
== END 2025-02-07 14:48 | disposition home or self-care (01) ==
PROVIDERS: Physician Assistant Medical; Emergency Provider Emergency Medicine; PCP Internal Medicine
DX: K52.9 Noninfective gastroenteritis and colitis, unspecified (principal); K59.00 Constipation, unspecified; R11.2 Nausea with vomiting, unspecified; Z79.899 Other long term (current) drug therapy
CPT/HCPCS: 36415; 74177; 80048; 80076; 81001; 83690; 83735; 83993; 85025; 87493; 87507; 96360; 99284; Q9967

== ENCOUNTER → 2025-02-07 08:10 | Outpatient (BNV) | payer BC, SELFPAY | PROVIDERS: Emergency Provider Emergency Medicine; PCP Internal Medicine; Visit Provider Radiology Diagnostic Radiology | DX: R11.2 Nausea with vomiting, unspecified (principal) | CPT/HCPCS: 74177 ==